=== PATIENT | female | born 2005 ===

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

== ENCOUNTER 2025-08-25 21:28 | Emergency (ER) | payer BC, MEDICAID ==
[2025-08-25 21:59] LABS: APPEARANCE,URINE CLEAR (CLEAR); GLUCOSE,URINE NEGATIVE (NEGATIVE); OCCULT BLOOD,URINE TRACE-INTACT (NEGATIVE)
[2025-08-25 22:34] LABS: EPITHELIAL CELLS,URINE FEW /HPF (NOT SEEN)
[2025-08-30 12:46] LABS: C.TRACHOMATIS BY TMA Negative (Negative); M GENITALIUM Negative (Negative); M GENITALIUM SOURCE Urine; N.GONORRHOEAE BY TMA Negative (Negative)
== END 2025-08-25 22:22 | disposition home or self-care (01) ==
LOC: DL.ED 21:28
DX: R30.0 Dysuria (principal); Z88.0 Allergy status to penicillin
CPT/HCPCS: 81001; 81025; 87491; 87563; 87591; 99283